=== PATIENT | female | born 1955 | race Caucasian/White ===

== ENCOUNTER 2022-05-31 15:19 | Outpatient (CLI) | payer OTHER, SELFPAY ==
--- NOTE | 2022-05-31 15:40 | CRLHL7_ITS ---
For Patients: As a result of the Century Cures Act, medical imaging exams and procedure reports are released immediately into your electronic medical record. You may view this report before your referring provider. If you have questions, please contact your health care provider. BILATERAL DIGITAL SCREENING MAMMOGRAM WITH COMPUTER-AIDED DETECTION CLINICAL HISTORY: Routine screening exam. COMPARISON: 05/04/2021, 05/08/2020, 04/14/2020, 02/15/2019. TECHNIQUE: Digital mammogram in CC and MLO projections including computer-aided detection (CAD). BREAST COMPOSITION: The breasts are heterogeneously dense, which may obscure small masses. FINDINGS: RIGHT Breast: No suspicious findings. LEFT Breast: Nodular density lateral LEFT breast 4 cm from the nipple, probable fibroadenoma. IMPRESSION: LEFT breast asymmetry/mass. RECOMMENDATIONS: Additional mammographic views of the LEFT breast including 3D spot compression CC/MLO. LEFT breast ultrasound may also be required. BI-RADS Category 0: Incomplete: Need Additional Imaging Evaluation and/or Prior Mammograms for Comparison [facility] will contact the patient for follow-up. A lay language report of this examination will be provided to the patient. Dictated by Nain Bagley MD @ 06/01/2022 12:59:46 PM dwight/Dictated by: Nain Bagley MD @ 06/01/2022 12:59:00 PM (Electronically Signed)
== END 2022-05-31 15:20 | disposition home or self-care (01) ==
LOC: MAMMO 15:21
PROVIDERS: PCP Family Medicine; Visit Provider Family Medicine
DX: Z12.31 Encounter for screening mammogram for malignant neoplasm of breast (principal); N63.10 Unspecified lump in the right breast, unspecified quadrant; R92.2 Inconclusive mammogram
CPT/HCPCS: 77067

== ENCOUNTER 2022-06-21 08:25 | Outpatient (CLI) | payer OTHER, SELFPAY ==
--- NOTE | 2022-06-21 08:45 | CRLHL7_ITS ---
For Patients: As a result of the Cures Act, medical imaging exams and procedure reports are released immediately into your electronic medical record. You may view this report before your referring provider. If you have questions, please contact your health care provider. CLINICAL HISTORY: LEFT breast mass/asymmetry. COMPARISON: 05/31/2022, 05/04/2021, 04/14/2020, 02/15/2019 TECHNIQUE: Digital LEFT mammogram in 2 projections. Real-time ultrasound imaging of LEFT breast with imaging documentation. Scanning was performed by both the technologist and the radiologist. BREAST COMPOSITION: Heterogeneously dense FINDINGS: 3D spot compression CC/MLO left breast mammogram images submitted. Decreased conspicuity of previously noted asymmetric density. No architectural distortion. No suspicious calcifications. Targeted left breast ultrasound performed in the upper-outer quadrant 2 o`clock 3 cm from the nipple. Normal dense fibroglandular tissue noted without discernible mass. No fibrocystic change. IMPRESSION: No suspicious findings on additional mammographic images and targeted left breast ultrasound. RECOMMENDATIONS: Annual bilateral screening mammography. BI-RADS: 2. Benign findings. Results and recommendations discussed with the patient. Dictated by Nain Bagley MD @ 06/21/2022 12:51:41 PM (Electronically Signed)
--- NOTE | 2022-06-21 09:15 | CRLHL7_ITS ---
For Patients: As a result of the Cures Act, medical imaging exams and procedure reports are released immediately into your electronic medical record. You may view this report before your referring provider. If you have questions, please contact your health care provider. CLINICAL HISTORY: LEFT breast mass/asymmetry. COMPARISON: 05/31/2022, 05/04/2021, 04/14/2020, 02/15/2019 TECHNIQUE: Digital LEFT mammogram in 2 projections. Real-time ultrasound imaging of LEFT breast with imaging documentation. Scanning was performed by both the technologist and the radiologist. BREAST COMPOSITION: Heterogeneously dense FINDINGS: 3D spot compression CC/MLO left breast mammogram images submitted. Decreased conspicuity of previously noted asymmetric density. No architectural distortion. No suspicious calcifications. Targeted left breast ultrasound performed in the upper-outer quadrant 2 o`clock 3 cm from the nipple. Normal dense fibroglandular tissue noted without discernible mass. No fibrocystic change. IMPRESSION: No suspicious findings on additional mammographic images and targeted left breast ultrasound. RECOMMENDATIONS: Annual bilateral screening mammography. BI-RADS: 2. Benign findings. Results and recommendations discussed with the patient. Dictated by Nain Bagley MD @ 06/21/2022 12:51:41 PM Signed by: Nain Bagley MD @06/21/2022 12:51:41 PM (Electronic Signature) DW/Dictated by: Nain Bagley MD @ 06/21/2022 12:51:00 PM (Electronically Signed)
== END 2022-06-21 08:26 | disposition home or self-care (01) ==
LOC: MAMMO 08:25
PROVIDERS: PCP Family Medicine; Visit Provider Family Medicine
DX: N63.20 Unspecified lump in the left breast, unspecified quadrant (principal); R92.8 Other abnormal and inconclusive findings on diagnostic imaging of breast
CPT/HCPCS: 76642; 77065; G0279